=== PATIENT | male | born 1995 | race Two or more races ===

== ENCOUNTER 2020-09-09 14:43 | Emergency (ER) | payer OTHER ==
[~2020-09-09] VITALS: Ht 165.1 cm; Wt 58.5 kg
--- NOTE | 2020-09-09 15:00 | NUR ---
[id number] & [employer] OFFICERS FOR BIZARRE BEHAVIOR/AGITATION. TAZER ON LT CHEST. GIVEN 5 MG OF VERSED IM IN FIELD. BG 103. PT EYES CLOSED BUT EASILY AROUSABLE WITH VERBAL STIMULI. RR EVEN & UNLABORED. DENIES ANY DISCOMFORT AT THIS TIME. PLACED ON SUPERINTENDENT LOGGING, SR. [employer] OFFICERS & SITTER AT BS.
--- NOTE | 2020-09-09 15:40 | NUR ---
Costume Rental Clerk note: patient financial services specialist consult requested for patient with bizarre behavior and agitation. Patient is a 25-year-old, male. SW met with patient at his bedside in the emergency department. Patient was unarousable. [employer] officers were at the patients bedside. SW spoke to ER MD, Dr. Turner who stated that the patient will be taken with [employer] at the time of discharge. No further SS intervention at this time, however, SW will remain available as needed.
--- NOTE | 2020-09-09 16:49 | NUR ---
Patient discharged to [facility] in stable condition. Written and verbal after care instructions given PT & [employer] OFFICERS. PT & [employer] OFFICERS verbalizes understanding of instruction.
[2020-09-09 16:50] VITALS: BP 126/70
== END 2020-09-09 16:52 ==
LOC: ER 14:45
DX: S05.12XA Contusion of eyeball and orbital tissues, left eye, initial encounter (principal); S20.312A Abrasion of left front wall of thorax, initial encounter; R45.1 Restlessness and agitation; Z02.89 Encounter for other administrative examinations; X58.XXXA Exposure to other specified factors, initial encounter; Y93.89 Activity, other specified; Y92.89 Other specified places as the place of occurrence of the external cause; Y99.8 Other external cause status